=== PATIENT | female | born 1980 | race Caucasian/White ===

== ENCOUNTER → 2022-04-30 | Outpatient (CLI) | payer SELFPAY ==
[~2022-04-30] MED LIST: COREG25 MG PO; CYCLOBENZAPRINE10 MG PO; HYDROCODONE-AC1 EAC1 PO; LISINOPRIL40 MG PO; PREDNISONE10 M1 PO; VENLAFAXINE HC150 M1 PO; VITAMIN D21250 MCG PO
== END ==
LOC: KOH-I 14:51
DX: S82.842A Displaced bimalleolar fracture of left lower leg, initial encounter for closed fracture (principal)
CPT/HCPCS: 73610

== ENCOUNTER → 2022-05-03 | Day surgery (SDC) | payer MEDICAID ==
[~2022-05-03] VITALS: Ht 154.9 cm; Wt 112.9 kg
[2022-05-03 08:26] LABS: HEMOGLOBIN 12.2 gm/dl (12.3-15.3); RED BLOOD COUNT 3.63 M/UL (4.00-5.10); WHITE BLOOD COUNT 9.3 K/UL (4.5-11.0)
[2022-05-03 08:41] LABS: BUN/CREATININE RATIO 18 (0-10)
== END | disposition home or self-care (01) ==
LOC: OR 07:32
PROVIDERS: Podiatrist Foot & Ankle Surgery
DX: S82.842A Displaced bimalleolar fracture of left lower leg, initial encounter for closed fracture (principal); M25.472 Effusion, left ankle; S93.422A Sprain of deltoid ligament of left ankle, initial encounter; W19.XXXA Unspecified fall, initial encounter; I10 Essential (primary) hypertension; K21.9 Gastro-esophageal reflux disease without esophagitis; E66.01 Morbid (severe) obesity due to excess calories; F41.9 Anxiety disorder, unspecified; F32.A Depression, unspecified; F17.210 Nicotine dependence, cigarettes, uncomplicated; Z79.899 Other long term (current) drug therapy
CPT/HCPCS: 73600; 73610; 76000; 80048; 84703; 85027; 93005; C1713; J0171; J0690; J1100; J1170; J1885; J2001; J2250; J2405; J2704; J2795; J3010; J3370

== ENCOUNTER → 2022-05-09 | Outpatient (CLI) | payer MEDICAID | LOC: KOH-I 13:16 | DX: S82.842D Displaced bimalleolar fracture of left lower leg, subsequent encounter for closed fracture with routine healing (principal); X58.XXXD Exposure to other specified factors, subsequent encounter | CPT/HCPCS: 73610 ==